=== PATIENT | female | born 1975 | race Caucasian/White ===

== ENCOUNTER 2021-07-08 19:02 | Emergency (ER) | payer BC ==
[~2021-07-08] VITALS: Ht 165.1 cm; Wt 75.0 kg
[2021-07-08] MEDS ORDERED: AZO CRANBERRY1 EACH PO (20:08)
[2021-07-08] MEDS ORDERED: CLARITIN10 M2 PO (20:09)
[2021-07-08] MEDS ORDERED: MONO-LINYAH1 EACH PO (20:10)
[2021-07-08] MEDS ORDERED: CEPHALEXIN500 MG PO (21:08)
[2021-07-08] MEDS ORDERED: PYRIDIUM200 MG PO (21:08)
== END 2021-07-08 21:26 | disposition home or self-care (01) ==
LOC: ED 19:02
DX: N39.0 Urinary tract infection, site not specified (principal); Z88.2 Allergy status to sulfonamides; Z79.899 Other long term (current) drug therapy
CPT/HCPCS: 81001; 99283; A9270